=== PATIENT | female | born 1975 | race Caucasian/White ===

== ENCOUNTER 2021-09-17 09:15 | Outpatient (CLI) | payer OTHER, SELFPAY ==
--- NOTE | ~2021-09-17 | MR_ITS ---
EXAMINATION: MR shoulder LT wo con DATE: 09/17/2021 09:57 INDICATION: Chronic left shoulder pain. TECHNIQUE: Magnetic resonance imaging (MRI) of the left shoulder was performed without intravenous co ntrast. Sequences included axial PD-weighted FS FSE, coronal oblique PD-weighted FS FSE and T2-weight ed FS FSE, and sagittal oblique T2-weighted FS FSE and T1-weighted FSE. COMPARISON: None. FINDINGS: Coracoacromial arch: The acromion undersurface is curved in morphology (type II). There is moderate acromioclavicular join t osteoarthritis including inferiorly directed osteophytes. There is mild subacromial/subdeltoid burs itis. Rotator cuff: There is moderate supraspinatus and infraspinatus tendinopathy. No tear. Teres minor tendon is normal . There is severe subscapularis tendinopathy with interstitial tear. There is no asymmetric fatty atr ophy of the rotator cuff muscle bellies. Biceps tendon and glenoid labrum: Biceps tendon is in bicipital groove. There is tendinopathy and partial tear of proximal biceps tendo n characterized by enlargement and increased signal intensity. There is degeneration of the glenoid l abrum without well-defined tear. Fluid: There is a small glenohumeral joint effusion. Bones/cartilage: The glenoid cartilage is normal. Humeral head cartilage is normal. IMPRESSION: 1. Rotator cuff tendinopathy with interstitial tear of subscapularis tendon. 2. Tendinopathy and partial tear of long head of biceps tendon. 3. Small glenohumeral joint effusion. 4. Mild subacromial/subdeltoid bursitis. 5. Moderate acromioclavicular joint osteoarthritis. Reviewed, dictated and finalized at location A. [facility]
== END 2021-09-17 09:16 ==
PROVIDERS: Visit Provider Orthopaedic Surgery
DX: M25.512 Pain in left shoulder (principal); G89.29 Other chronic pain; M75.82 Other shoulder lesions, left shoulder; S46.112A Strain of muscle, fascia and tendon of long head of biceps, left arm, initial encounter; M25.412 Effusion, left shoulder; M75.52 Bursitis of left shoulder; M19.012 Primary osteoarthritis, left shoulder
CPT/HCPCS: 73221